=== PATIENT | female | born 1980 | race Caucasian/White ===

== ENCOUNTER 2023-06-02 07:20 | Emergency (ER) | payer BC, SELFPAY ==
--- NOTE | ~2023-06-02 | XR_ITS ---
EXAMINATION: XR chest 2V DATE: 06/02/2023 07:53 INDICATION: Heart palpitations TECHNIQUE: PA and lateral views of the chest are obtained. COMPARISON: None available FINDINGS: The lungs are free of acute opacities. There is mild scarring in the lung apices. No pleura l effusion or pneumothorax. The cardiomediastinal silhouette is normal. The visualized bones and soft tissues are unremarkable. IMPRESSION: 1. No acute cardiopulmonary abnormality. Reviewed, dictated and finalized at location F. GING COGNITIVE ENGINEER
[2023-06-02 07:30] VITALS: BP 117/75; PULSE 88; RESP 14; TEMP 36.6; O2SAT 100
--- NOTE | 2023-06-02 07:30 | ECG_ITS ---
Measurements Intervals [place] Rate: 87 P: 80 NC: 142 QRS: 63 QRSD: 89 T: 34 QT: 362 QTc: 436 Interpretive Statements SINUS RHYTHM NORMAL ECG NO PREVIOUS ECG AVAILABLE FOR COMPARISON Electronically Signed On 06-02-2023 8:05:27 FISH CUTTING MACHINE OPERATOR by Len Black M.D.
--- NOTE | 2023-06-02 07:41 | ED.ARRPALP ---
HPI - Arrhythmia/Palpitations General Chief Complaint: Arrhythmia/Palpitations Stated Complaint: irregular heartbeat Time Seen by Provider: 06/02/23 07:41 Source: patient Mode of arrival: ambulatory Limitations: no limitations History of Present Illness HPI narrative: 42 years old white female drove herself to the emergency room with palpitation. Patient report having similar symptoms 4 months and was seen by her family physician for the same problem before. She denies any fever, chills, nausea, vomiting, chest pain or shortness of breath or back pain. History of any anxiety and depression. Patient is a single mom. Related Data Home Medications Medication Instructions Recorded Confirmed bupropion HCl 150 mg tablet,12 hr 150 mg PO BID 07/01/21 05/21/23 sustained-release levonorgestrel 21 mcg/24 hours (8 1 device intrauterine ONCE 07/01/21 05/21/23 yrs) 52 mg intrauterine device (Mirena) multivitamin 1 tablet PO DAILY 11/16/22 05/21/23 magnesium oxide 420 mg tablet 420 mg PO DAILY 05/21/23 05/21/23 Allergies Allergy/AdvReac Type Severity Reaction Status Date / Time No Known Allergies Allergy Verified 06/02/23 07:34 Review of Systems Review of Systems: All systems reviewed & are unremarkable except as noted in HPI and below PMFSH Past Medical History Medical History Bunion Depression Family history of colon cancer History of DVT (deep vein thrombosis) Thyroid dysfunction Surgical History Surgical History H/O laparoscopy 2001 Family History Family History Sibling Hypertension Ulcerative colitis Cushings syndrome Grandparent Carcinoma of colon Grandparent Leukemia Social History Social History Smoking status: Never smoker Alcohol intake: current Substance use: never Living arrangements: with family Occupation/Education: occupation Additional occupation/education comments: school bus driver/teacher assistant at [employer] Agree to blood products: Yes Exam Narrative: General appearance: Well-developed, well-nourished Skin: Normal color Head: Normocephalic, nontraumatic Eyes: Clear conjunctiva ENT: Oropharynx normal, ears normal, nose normal Neck: Supple, nontender Chest and respiratory: Airway patent, no respiratory distress, no accessory muscle use Heart: Regular rate/rhythm Abdomen: Soft, nontender, no organomegaly, quiet bowel sounds Vascular: Normal peripheral pulses, normal capillary refill. Musculoskeletal: Normal range of motion, nontender back Neurologic: Alert and oriented ?3, MIRROR INSPECTOR is normal as tested, no gross motor deficit Course Vital Signs Vital signs: Vital Signs Temperature 36.6 C 06/02/23 07:30 Pulse Rate 88 06/02/23 07:30 Respiratory Rate 14 06/02/23 07:30 Blood Pressure 117/75 06/02/23 07:30 Pulse Oximetry 100 06/02/23 07:30 Oxygen Delivery Room Air 06/02/23 07:30 Temperature 36.6 C 06/02/23 07:30 Pulse Rate 79 06/02/23 08:57 Respiratory Rate 12 06/02/23 08:57 Blood Pressure 117/75 06/02/23 07:30 Pulse Oximetry 100 06/02/23 08:57 Oxygen Delivery Room Air 06/02/23 07:30 MDM - Arrhythmia/Palpitations MDM Narrative Medical decision making narrative: Differential diagnosis include anxiety like symptoms, electrolyte imbalance, hyperthyroidism, dehydration, valvular abnormality Blood workup today showed no acute abnormalities, TSH is low which could indicate hyperthyroidism versus is stress related. EKG on arriv
[2023-06-02 07:45] VITALS: PULSE 83
[2023-06-02 07:48] LABS: Basophils Absolute Auto 0.1 K/mm3 (0.0-0.1); Basophils Percent Auto 1.3 % (0.2-1.2); Eosinophils Absolute Auto 0.1 K/mm3 (0-0.3); Eosinophils Percent Auto 2.2 % (0-4.4); Hematocrit 42.8 % (37.0-47.0); Hemoglobin 13.9 g/dL (12.0-15.0); Lymphocytes Absolute Auto 1.61 K/mm3 (0.9-3.2); Lymphocytes Percent Auto 29.7 % (18.3-44.2); Mean Corpuscular HGB Conc 32.5 g/dl (32-36); Mean Corpuscular Hemoglobin 30.1 pg (26-34); Mean Corpuscular Volume 92.6 fl (80-100); Mean Platelet Volume 9.8 fl (7.4-10.4); Monocytes Absolute Auto 0.4 K/mm3 (0.1-0.6); Monocytes Percent Auto 7.7 % (2.6-8.5); Neutrophils Absolute Auto 3.2 K/mm3 (1.3-6.7); Neutrophils Percent Auto 59.1 % (45.5-73.1); Platelet Count Result 300 k/mm3 (150-375); Red Blood Count 4.62 M/mm3 (4.2-5.4); Red Cell Distribution Width 12.5 % (11.5-14.5); White Blood Count 5.4 K/mm3 (4.5-10.0)
--- NOTE | 2023-06-02 07:48 | PC.NURSE ---
Pt to XRAY via w/c, pt on tele monitor at this time.
[2023-06-02 07:59] LABS: Alanine Aminotransferase 23 U/L (6-35); Albumin Level 4.5 g/dL (3.5-5.1); Alkaline Phosphatase 46 U/L (38-126); Anion Gap 6 mmol/L (8-16); Aspartate Amino Transferase 35 U/L (14-36); Bilirubin,Total 0.5 mg/dL (0.2-1.3); Blood Urea Nitrogen 17 mg/dL (7-17); Calcium 9.2 mg/dL (8.4-10.2); Carbon Dioxide 29 mmol/L (22-30); Chloride 103 mmol/L (98-107); Estimated CRCL calculation 73 ml/min; Estimated Glomerular Filt Rate > 60; Glucose 121 mg/dL (65-110); Lipase 47 U/L (23-300); Potassium 3.9 mmol/L (3.4-5.0); Sodium 138 mmol/L (137-145)
[2023-06-02 08:11] LABS: Troponin I < 0.012 ng/mL (0.000-0.034)
[2023-06-02 08:27] LABS: Prothrombin Time 13.6 Seconds (11.1-14.7)
[2023-06-02 08:28] LABS: Partial Thromboplastin Time 34.4 SECONDS (22.3-36.8)
[2023-06-02 08:34] LABS: Thyroid Stimulating Hormone Reflex 0.163 uIU/mL (0.465-4.68)
[2023-06-02 08:57] VITALS: PULSE 79; RESP 12; O2SAT 100
[2023-06-02 09:09] LABS: Free T4 Free Thyroxine Reflex 1.31 ng/dL (0.78-2.19)
[2023-06-02 09:18] VITALS: BP 100/60; PULSE 70; RESP 17; O2SAT 99
[2023-06-02 12:46] LABS: Total Triiodothyronine (T3) 1.04 NG/ML (0.97-1.69)
== END 2023-06-02 09:31 | disposition home or self-care (01) ==
PROVIDERS: Emergency Provider Emergency Medicine; PCP Family Medicine
DX: R00.2 Palpitations (principal); E05.90 Thyrotoxicosis, unspecified without thyrotoxic crisis or storm; F41.9 Anxiety disorder, unspecified; F32.A Depression, unspecified; Z79.899 Other long term (current) drug therapy; Z86.718 Personal history of other venous thrombosis and embolism
CPT/HCPCS: 36415; 71046; 80053; 81025; 83690; 84439; 84443; 84480; 84484; 85025; 85610; 85730; 93005; 99284

== ENCOUNTER 2023-06-04 15:04 | Outpatient (CLI) | payer BC, SELFPAY ==
--- NOTE | 2023-06-10 08:21 | WPDHOLTEREM ---
Holter/Event Monitor Holter/Event Monitor Date of procedure: 06/10/23 Holter/Event Procedure: 48 Hr Holter Monitor Diagnosis: Palpitations Indications: Palpitation Image/Tracing Quality: Favorable Finding: The basic rhythm is sinus with normal MO QRS and QT interval. The heart rate varies from a minimum of 53 to a maximum of 132 with an average rate of 82. There were no abnormalities of AV conduction there were no pauses identified. Supraventricular ectopic activity consists of occasional to sometimes frequent PACs. These occurred throughout the study. There were no runs of SVT in the were no examples of atrial fibrillation. Ventricular arrhythmias were not seen during this exam Patient submitted a diary in which 58 episodes of palpitations were recorded during this 48 hours. These correlated with sinus rhythm with premature atrial contractions as described above Conclusion: 1. 48 hour Holter monitor demonstrating sinus rhythm with normal heart rate variability 2. Premature atrial contractions which correlate with the patient's symptoms of palpitation Brandon Lopez MD [facility]
== END 2023-06-04 15:05 | disposition home or self-care (01) ==
PROVIDERS: PCP Family Medicine; Visit Provider Nurse Practitioner
DX: R00.2 Palpitations (principal)
CPT/HCPCS: 93225; 93226

== ENCOUNTER 2023-06-29 07:44 | Outpatient (CLI) | payer BC, SELFPAY ==
--- NOTE | 2023-06-29 07:48 | ECHO_ITS ---
Patient Info Name: Faith Watkins Age: 43 years : 1980 Gender: Female Ht: 69 in Wt: 170 lbs BSA: 1.95 m2 HR: 76 bpm BP: 103 / 86 mmHg Heart Rhythm: Sinus Rhythm Technical Quality: Good Exam Date: 06/29/2023 8:03 AM Exam Location: Echo Lab Patient Status: Outpatient Admit Date: 06/29/2023 Staff Ordering Physician: Tammy Perez DO Well Services Operator: Varun Dotson RDCS Attending Provider: Tammy Perez DO Referring Physician: Chris WOLFE; Exam Type: CA echo doppler color flow Study Info Indications - atrial premature depolarization Complete two-dimensional, color flow and Doppler transthoracic echocardiogram is performed. Summary 1. Complete two-dimensional, color flow and Doppler transthoracic echocardiogram is performed. 2. Left ventricular chamber dimension is normal. 3. Left ventricular systolic function is normal, estimated at 60-65%. 4. The left ventricular diastolic function is normal. 5. E/e' 6 is not elevated. 6. There is trace tricuspid valve regurgitation. 7. No pulmonary hypertension, estimated pulmonary arterial systolic pressure is 23 mmHg. Left Ventricle E/e' 6 is not elevated. Left ventricular chamber dimension is normal. Left ventricular systolic function is normal, estimated at 60-65%. The left ventricular diastolic function is normal. Right Ventricle Right ventricular systolic function is normal and with normal TAPSE 2.9 cm. Right ventricular chamber dimension is normal. Left Atria Left atrial chamber dimension is normal. Right Atria Right atrial chamber dimension is normal. Aortic Valve The aortic valve is trileaflet. There is no aortic valve stenosis. There is no aortic valve regurgitation. Pulmonic Valve There is no pulmonic regurgitation. Mitral Valve There is no mitral valve stenosis. There is no mitral valve regurgitation. Tricuspid Valve There is trace tricuspid valve regurgitation. No pulmonary hypertension, estimated pulmonary arterial systolic pressure is 23 mmHg. Pericardium/Pleural There is no pericardial effusion. Inferior Vena Cava Normal inferior vena cava with >50% collapse upon inspiration consistent with normal right atrial pressure, 5 mmHg. Aorta The aortic root size at the sinus of Valsalva is normal. Left Ventricular Outflow Tract Name Value Normal LVOT 2D LVOT Diameter 2.0 cm LVOT Doppler LVOT Peak Gradient 4 mmHg LVOT Mean Gradient 2 mmHg LVOT VTI 20 cm LVOT VTI/AV VTI Ratio 0.7 LVOT Stroke Volume 61 ml LVOT CO 5.1 l/min LVOT CI 2.6 l/min/m2 Pulmonic Valve Name Value Normal RVOT Doppler RVOT Peak Gradient 2 mmHg PV Doppler PV Peak Gradient
== END 2023-06-29 07:45 | disposition home or self-care (01) ==
PROVIDERS: PCP Family Medicine; Visit Provider Family Medicine
DX: I49.1 Atrial premature depolarization (principal)
CPT/HCPCS: 93306